=== PATIENT | male | born 1950 | race Caucasian/White ===

== ENCOUNTER 2021-10-11 22:49 | Emergency (ER) | payer MEDICARE, OTHER ==
[2021-10-11 23:18] LABS: BASOPHIL 0.4 % (0-2); EOSINOPHIL 3.4 % (0-7); HCT 38.3 % (42.0-52.0); HGB 12.9 g/dl (13.2-18.0); LYMPHOCYTE 43.7 % (15-48); MCH 29.5 pg (25.0-31.0); MCHC 33.7 g/dL (32.0-36.0); MCV 87.6 fL (78.0-100.0); MONOCYTE 7.8 % (0-12); MPV 9.3 fL (6.0-9.5); NEUTROPHIL 44.1 % (41-80); NRBC 0; PLT 313 K/uL (150-400); RBC 4.37 M/uL (4.70-6.00); RDW 12.6 % (11.5-14.0); WBC 9.5 K/uL (4.0-10.5)
[2021-10-11 23:32] LABS: ALBUMIN 3.4 g/dL (3.4-5.0); BILIRUBIN - TOTAL 0.3 mg/dL (0.2-1.0); BUN/CREAT RATIO (CALC) 26.9 RATIO; CREATININE 0.93 mg/dL (0.67-1.17); GLOBULIN (CALCULATION) 3.8 g/dL; POTASSIUM 3.6 mmol/L (3.5-5.1); TOTAL PROTEIN 7.2 g/dL (6.4-8.2)
[2021-10-12 01:02] LABS: BILIRUBIN NEGATIVE (NEGATIVE); BLOOD 2+ Ery/uL (NEGATIVE); CLARITY CLEAR (CLEAR); COLOR YELLOW (YELLOW); GLUCOSE (U) NORMAL (NORMAL); LEUKOCYTES NEGATIVE Leu/uL (NEGATIVE); NITRITE NEGATIVE (NEGATIVE); PROTEIN NEGATIVE (NEGATIVE); UROBILINOGEN 0.2 mg/dL (0.2-1.0)
[2021-10-12 01:08] LABS: BACTERIA TRACE; MUCOUS TRACE; URINARY WBC RARE
[2021-10-12] MEDS ORDERED: ROBAXIN750 MG PO (01:24)
[2021-10-12] MEDS ORDERED: NORCO 5-325 TA1 EACH PO (07:01)
== END 2021-10-12 01:51 | disposition home or self-care (01) ==
LOC: FER 22:49
PROVIDERS: Emergency Medicine
DX: S06.0X0A Concussion without loss of consciousness, initial encounter (principal); S32.019A Unspecified fracture of first lumbar vertebra, initial encounter for closed fracture; S32.029A Unspecified fracture of second lumbar vertebra, initial encounter for closed fracture; I10 Essential (primary) hypertension; W11.XXXA Fall on and from ladder, initial encounter; Y92.009 Unspecified place in unspecified non-institutional (private) residence as the place of occurrence of the external cause
CPT/HCPCS: 36415; 70450; 71260; 72125; 72128; 72131; 80053; 81001; 83605; 83690; 83735; 84145; 84484; 85025; 93005; G0480; J1170; J2405; J7030; Q9967